=== PATIENT | female | born 1985 | race Caucasian/White ===

== ENCOUNTER 2025-04-25 14:42 | Outpatient (REF) | payer OTHER, SELFPAY ==
--- OUTSIDE RECORDS SUMMARY | 2025-04-25 10:00 | XMS_ITS | Encounter Summary ---
Author Organization [facility] Address [address] [facility] [place] [address] Care Team Providers Care Laminating Machine Operator Name Role Phone Maryellen Christianson CHAINSTITCH TUNNEL ELASTIC OPERATOR Unavailable [phone] Zhane Nathan MD Primary Care Provider [phone] Reason for Visit * Reason Comments Well Women Visit Encounter Details Date Type Department Care Team (Late st Contact Info) Description 04/25/2025 10:00 AM EDT Office Visit [facility] [address] [place] [phone] Orin Larson PA [address] [place] [address] Well woman exam with routine gynecological exam; Breast cancer screening by mammogram; Labial cyst Social History Tobacco Use Types Packs/Day Years Used Date Smoking Tobacco: Never Smokeless Tobacco: Never Alcohol Use Standard Drinks/Week Comments Not Currently 0 (1 standard drink = 0.6 oz pur e alcohol) caffeine: 2-3 cups/day tea Humiliation, Afraid, Rape, and Kick questionnair e Answer Date Recorded Within the last year, have y ou been afraid of your partner or ex-partner? No 03/18/2023 Within the last year, have y ou been humiliated or emotionally abused in other ways by your partner or ex-partner? No Within the last year, have y ou been kicked, hit, slapped, or otherwise physically hurt by your partner or ex-partner? No 03/18/2023 Within the last year, have y ou been raped or forced to have any kind of sexual activity by your partner or ex-partner? No 03/18/2023 Social Connection and Isolation Panel [NHANES] A nswer Date Recorded In a typical week, how many times do you talk on the phone with family, friends, or neighbors? Once a week 03/18/2023 How often do you get togethe r with friends or relatives? Once a week 03/18/2023 How often do you attend zoroastrianism or temple serv ices? Patient declined 03/18/2023 Do you belong to any clubs o r organizations such as zoroastrianism groups, unions, fraternal or athletic groups, or school groups? No 03/18/2023 Attends Club or Organization Meetings Not on rianna e 03/18/2023 Are you , , di vorced, , never , or living with a partner? 03/18/2023 AUDIT-C Answer Date Recorded Q1: How often do you have a drink containing alc ohol? Monthly or less 03/18/2023 Q2: How many drinks containi ng alcohol do you have on a typical day when you are drinking? 1 or 2 03/18/2023 Q3: How often do you have si x or more drinks on one occasion? Never 03/18/2023 Overall Financial Resource Strain (CARDIA) Answe r Date Recorded How hard is it for you to pa y for the very basics like food, housing, medical care, and heating? Not very hard 03/18/2023 PHQ-2 Answer Date Recorded Patient Health Questionnaire-2 Score 0 04/26/2024 [facility] - Occupational Stress Questionnaire Answer Date Recorded Do you feel stress - tense, restless, nervous, or anxious, or unable to sleep at night because your mind is troubled all the time - these days? Rather much 04/25/2024 Exercise Vital Sign Answer Date Recorde d On average, how many days pe r week do you engage in moderate to strenuous exercise (like a brisk walk)? Patient declined On average, how many minutes do you engage in exercise at this level? Patient declined 04/25/2024 Hunger Vital Sign Answer Date Recorded Within the past 12 months, y ou worried that your food would run out before you got the money to buy more. Never true 03/18/20 Within the past 12 months, t he food you bought just didn't last and you didn't have money to get more. Never true 03/18/2023 PRAPARE - Transportation Answer Date Re corded In the past 12 months, has l ack of transportation kept you from medical appointments or from getting medications? No 03/06 In the past 12 months, has l ack of transportation kept you from meetings, work, or from getting things needed for daily living? No 03/18/2023 Housing Stability Vital Sign Answer Jesus e Recorded In the last 12 months, was t here a time when you were not able to pay the mortgage or rent on time? No 03/18/2023 In the last 12 months, how many places have you lived? 1 03/18/2023 In the last 12 months, was t here a time when you did not have a steady place to sleep or slept in a usp (including now)? No 03/18/2023 Comments No Sex and Gender Information Value Date Recorded Sex Assigned at Not on file Legal Sex Female 8:11 PM EDT Gender Identity Female 11/18/2022 8:11 PM EDT Sexual Orientation Not on file documented as of this encounter Last Filed Vital Signs Vital Sign Reading Time Taken Comments Blood Pressure 118/74 04/25/2025 10:21 AM EDT Pulse - - Temperature - - Respiratory Rate - - Oxygen Saturation - - Inhaled Oxygen Concentration - - Weight 121 kg (267 lb) 04/25/2025 10:21 AM EDT Height - - Body Mass Index 37.77 04/05/2025 10:54 AM EDT documented in this encounter Progress Notes * MEME Saunders - 04/25/2025 10:00 AM EDT Reason for Appointment: Patient ID: Jackie Watson is a 39 y.o. female who presents for Well Women Visit Patient presents today for Annual Exam. MEDICATIONS Current Outpatient Medications Medication Instructions Atogepant (Qulipta) 60 MG tablet 1 tablet, Oral, Daily ergocalciferol (VITAMIN D-2) 50,000 Units galcanezumab (EMGALITY) 120 mg, Subcutaneous, Every 30 days hydroCHLOROthiazide (MICROZIDE) 12.5 mg, Oral, Every morning levothyroxine (SYNTHROID) 200 mcg, Daily before breakfast lisinopril 20 mg, Oral, Daily LORazepam (ATIVAN) 0.5 mg, Oral, Every 6 hours PRN metFORMIN (GLUCOPHAGE) 500 mg, 2 times daily with meals verapamil SR (CALAN SR) 180 mg, Oral, Daily ALLERGIES Allergies Allergen Reactions Semaglutide GI intolerance constipation Ajovy [Fremanezumab-Vfrm] Rash Penicillin G Rash Sulfa Antibiotics Rash PROBLEMS Active Ambulatory Problems Diagnosis Date Noted Abnormal weight gain 01/18/2023 Chronic maxillary sinusitis 01/18/2023 Chronic rhinitis 01/18/2023 Constipation 01/18/2023 Essential hypertension 01/18/2023 Hermes's thyroiditis 01/18/2023 Hypercholesteremia 01/18/2023 Irregular menstruation, unspecified 01/18/2023 Irritable bowel syndrome 01/18/2023 Multinodular goiter 01/18/2023 Ocular migraine 01/18/2023 Osteoarthritis of knee 01/18/2023 PCOS (polycystic ovarian syndrome) 03/11/1905 Tingling in extremities 01/18/2023 Vasomotor rhinitis 01/18/2023 Vitamin D deficiency 01/18/2023 Abscess, tongue 02/26/2023 Palpitations 03/22/2023 Resolved Ambulatory Problems Diagnosis Date Noted Psoriasis (a type of skin inflammation) 01/18/2023 Past Medical History: Diagnosis Date Anxiety Goiter, nodular IBS (irritable bowel syndrome) Kidney infection 2002 Migraines Obesity HISTORY PAST MEDICAL HISTORY SOCIAL HISTORY Past Medical History: Diagnosis Date Anxiety Constipation Essential hypertension Goiter, nodular Hermes's thyroiditis sees Dr. Jimenez IBS (irritable bowel syndrome) had cscope 2009 Kidney infection 2002 [facility] Migraines Obesity PCOS (polycystic ovarian syndrome) Vitamin D deficiency Social History Tobacco Use Smoking status: Never Smokeless tobacco: Never Substance Use Topics Alcohol use: Not Currently Comment: caffeine: 2-3 cups/day tea Drug use: Never FAMILY HISTORY Family History Problem Relation Name Age of Onset Other (lyme's disease) Mother Mom Cancer Mother Mom Peritoneal Thyroid disease Mother Mom Migraines Mother Mom Hypertension Father Dad Ulcerative colitis Father Dad Anxiety disorder Father Dad Other (pre-diabetes) Father Dad Diabetes Father Dad Thyroid disease Sister 2 sisters didn't specify who Autism Brother 2 borthers didn't specify who No Known Problems Son 2 sons Cancer Paternal Grandfather Grandpa Diabetes Paternal Grandfather Grandpa Diabetes Son Son SURGICAL HISTORY Past Surgical History: Procedure Laterality Date ADENOIDECTOMY COLONOSCOPY 2008 MYRINGOTOMY W/ TUBES as a child TONSILLECTOMY 06/03/2017 WISDOM TOOTH EXTRACTION 1999 REVIEW OF SYSTEMS Review of Systems: Review of Systems Constitutional: Negative. HENT: Negative. Eyes: Negative. Respiratory: Negative. Cardiovascular: Negative. Gastrointestinal: Negative. Genitourinary: Negative. Musculoskeletal: Negative. Skin: Negative. Neurological: Negative. All other systems reviewed and are negative. Hematological: Negative. Endocrine: Negative. Allergic/Immunologic: Negative. OBJECTIVE Objective: Physical Exam Constitutional: Appearance: Normal appearance. Genitourinary: Right Adnexa: not tender and no mass present. Left Adnexa: not tender and no mass present. No cervical discharge. Breasts: Breasts are soft. Right: Normal. Left: Normal. HENT: Head: Normocephalic. Nose: Nose normal. Mouth/Throat: Mouth: Mucous membranes are moist. Cardiovascular: Rate and Rhythm: Normal rate. Pulmonary: Effort: Pulmonary effort is normal. Abdominal: General: Bowel sounds are normal. Palpations: Abdomen is soft. Musculoskeletal: General: Normal range of motion. Cervical back: Normal range of motion. Neurological: General: No focal deficit present. Mental Status: She is alert. Skin: General: Skin is warm and dry. Psychiatric: Mood and Affect: Mood normal. Vitals and nursing note reviewed. Exam conducted with a mail room present. Vitals: Estimated body mass index is 37.77 kg/m?? as calculated from the following: Height as of 04/05/25: 5' 10.5 . Weight as of this encounter: 267 lb. BP: 118/74 No LMP recorded. ASSESSMENT & PLAN ICD-10-CM 1. Well woman exam with routine gynecological exam Z01.419 THIN PREP TIS PAP AND HR HPV DNA 2. Breast cancer screening by mammogram Z12.31 Annual Exam: Patient presents today for an annual exam. Patient states she is doing well and has no complaints. Pap was obtained without difficulty. No orders of the defined types were placed in this encounter. Patient has a history of folliculitis. States recently got back from [place] and now has 3 areas of irritation. Small follicular cyst noted in the right labia. Patient will be treated with keflex and follow up as needed Follow Up: Patient is to return in one year for annual unless needed otherwise. Documented by Savannah Molina LPN on behalf of: MEME Saunders documented in this encounter Plan of Treatment Upcoming Encounters Date Type Department Care Team (Late st Contact Info) Description 05/10/2025 10:20 AM EDT Office Visit [facility] [address] [place] [address] Zhane Nathan MD [address] [place], [place] [id number] Scheduled Orders Name Type Priority Associated Diagnoses Orde r Schedule THIN PREP TIS PAP AND HR HPV DNA Pathology and Cytology Routine Well woman exam with routine gynecological exam Ordered: 04/25/2025 documented as of this encounter Procedures Procedure Name Priority Date/Time Associated Diagnosis Comments PAP SMEAR Routine 09/16/2022 12:00 AM EST documented in this encounter Results * Pap Smear (09/16/2022 12:00 AM EST) Swab Cervical swab / Unknown us Luigi Jennifer DO LAB CYTOLOGY ORDERABLES Final Re sult EXTERNAL LAB documented in this encounter Visit Diagnoses Diagnosis Well woman exam with routine gynecological exam Routine gynecological examination Breast cancer screening by mammogram Labial cyst Other specified noninflammatory disorder of vulva and perineum documented in this encounter Care Teams Laminating Machine Operator Relationship Specialty Start Date End Date Zhane Nathan MD [address] [place], [place] [id number] PCP - General Family Medicine 02/26/23 Maryellen Christianson NP Nurse Practitioner Family Medicine 02/04/23 documented as of this encounter
--- OUTSIDE RECORDS SUMMARY | 2025-04-25 14:47 | XMS_ITS | Encounter Summary ---
Author Organization [employer] Address [id number] [address] [place] [address] Care Team Providers Care Real Estate Office Supervisor Name Role Phone Kennedy Karie Donahue APRN-MASTER SONAR TECHNICIAN Primary Care Provider [phone] Encounter Details Date Type Department Care Team (Late st Contact Info) Description 06/09/2023 Orders Only [facility] [address] [place] [address] Nakul Jimenez MD [address] [place] [address] Polycystic ovarian syndrome; Primary hypothyroidism; Pre-diabetes; Vitamin D deficiency Social History Tobacco Use Types Packs/Day Years Used Date Smoking Tobacco: Never Smokeless Tobacco: Never Alcohol Use Standard Drinks/Week Comments No 0 (1 standard drink = 0.6 oz pur e alcohol) Childcare Answer Date Recorded Childcare Unknown 02/13/2019 Employment Answer Date Recorded Employment Unknown 02/13/2019 Hunger Screening Answer Date Recorded Within the past 12 months we worried whether our food would run out before we got money to buy more. Never True 06/04/2023 Within the past 12 months th e food we bought just didn't last and we didn't have money to get more. Never True 06/04/2023 Purpose - Life Answer Date Recorded Purpose and direction in life Unknown Comments No Sex and Gender Information Value Date Recorded Sex Assigned at Not on file Legal Sex Female 12:55 PM EDT Gender Identity Not on file Sexual Orientation Not on file documented as of this encounter Plan of Treatment Upcoming Encounters Date Type Department Care Team (Late st Contact Info) Description 05/04/2025 9:15 AM EDT Appointment [facility] [place] - Neurophysiology [address] [place] [address] 07/05/2025 8:30 AM EDT Office Ultrasound [facility] Adult Endocrinology, A Department of [facility] [address] [place] [phone] Nakul Jimenez MD [address] [place] [address] documented as of this encounter Procedures Procedure Name Priority Date/Time Associated Diagnosis Comments TESTOSTERONE, FREE AND TOTAL, FEMALE OR CHILDREN Routine 05/31/2023 Polycystic ovarian syndrome VITAMIN D 25 HYDROXY Routine 05/31/2023 Vitamin D deficiency PROLACTIN Routine 05/31/2023 Polycystic ovarian syndrome INSULIN Routine 05/31/2023 Polycystic ovarian syndrome TSH Routine 05/31/2023 Primary hypothyroidism HEMOGLOBIN A1C Routine 05/31/2023 Pre-diabetes Polycystic ovarian syndrome LUTEINIZING HORMONE Routine 05/31/2023 Polycystic ovarian syndrome FOLLICLE STIMULATING HORMONE Routine 05/31/2023 Polycystic ovarian syndrome COMPREHENSIVE METABOLIC PANEL Routine 05/31/2023 Polycystic ovarian syndrome documented in this encounter Results * Insulin (05/31/2023) 05/31/2023 Nakul Jimenez MD LAB BLOOD ORDERABLES Final Result [facility] * Prolactin (05/31/2023) 05/31/2023 Nakul Jimenez MD LAB BLOOD ORDERABLES Final Result [facility] * Vitamin D 25 hydroxy (05/31/2023) Blood 05/31/2023 Result [facility] Nakul Jimenez MD LAB BLOOD ORDERABLES Final Result Performing Organization Address [facility] de Phone Number SUNQUEST * Testosterone, Free and Total, Female or Children (05/31/2023) Blood 05/31/2023 Nakul Jimenez MD LAB BLOOD ORDERABLES Final Result Performing Organization Address [facility] de Phone Number SUNQUEST * Hemoglobin A1c (05/31/2023) External Hemoglobin A1C 5.4 4.2 - 5.6 % [facility] 05/31/2023 Nakul Jimenez MD LAB BLOOD ORDERABLES Final Result Performing Organization Address [facility] de Phone Number SUNQUEST * Luteinizing hormone (05/31/2023) 05/31/2023 Result [facility] Nakul Jimenez MD LAB BLOOD ORDERABLES Final Result Performing Organization Address [facility] de Phone Number SUNQUEST * Follicle stimulating hormone (05/31/2023) 05/31/2023 Nakul Jimenez MD LAB BLOOD ORDERABLES Final Result Performing Organization Address [facility] Co de Phone Number SUNQUEST * TSH (05/31/2023) 05/31/2023 Nakul Jimenez MD LAB BLOOD ORDERABLES Final Result Performing Organization Address [facility] de Phone Number SUNQUEST * Comprehensive metabolic panel (05/31/2023) 05/31/2023 Nakul Jimenez MD LAB BLOOD ORDERABLES Final Result [facility] documented in this encounter Visit Diagnoses Diagnosis Polycystic ovarian syndrome Polycystic ovaries Primary hypothyroidism Unspecified hypothyroidism Pre-diabetes Other abnormal glucose Vitamin D deficiency documented in this encounter Additional Health Concerns Assessment Noted Time A Body Mass Index follow-up plan has been documented for the patient 09/24/2020 5:17 PM EST documented as of this encounter Care Teams Real Estate Office Supervisor Relationship Specialty Start Date End Date Karie Benavides, INSTRUCTIONAL WRITER-MASTER SONAR TECHNICIAN PCP - General Nurse Practitioner 03/29/24 documented as of this encounter
--- OUTSIDE RECORDS SUMMARY | 2025-04-25 14:47 | XMS_ITS | Encounter Summary ---
Author Organization [facility] Address [address] [place] [address] Care Team Providers Care Public Speaking Teacher Name Role Phone Maryellen Christianson ACTING TEACHER Unavailable [phone] Zhane Nathan MD Primary Care Provider [phone] Reason for Visit * Reason Comments Med Refill Encounter Details Date Type Department Care Team (Late st Contact Info) Description 06/22/2023 Refill [facility] [address] [place] [phone] Maryellen Christianson, ACTING TEACHER [address] [place] [address] Migraine with aura, not intractable, without status migrainosus Social History Tobacco Use Types Packs/Day Years [...] week 03/18/2023 How often do you attend buddhism or buddhism serv ices? Patient declined 03/18/2023 Do you belong to any clubs o r organizations such as buddhism groups, unions, [employer]) or athletic groups, or school groups? No [...] care, and heating? Not very hard 03/18/2023 [facility] - Occupational Stress Questionnaire Answer Date Recorded Do you feel stress - tense, restless, nervous, or anxious, or unable to sleep at night because your mind is troubled all the time - these days? Only a little 03/18/2023 Exercise Vital Sign Answer Date Recorde d On average, how many days pe r week do you engage in moderate to strenuous exercise (like a brisk walk)? 1 day 03/18/2023 On average, how many minutes do you engage in exercise at this level? 30 min 03/18/2023 Hunger Vital Sign Answer Date Recorded Within the past 12 months, y ou worried that your food would run out before you got the money to buy more. Never true 03/18/20 23 Within the past 12 months, t he [...] place to sleep or slept in a chcf (including now)? No 03/18/2023 Comments Unknown Sex and Gender Information Value Date Recorded Sex Assigned at Not on file Legal Sex Female 8:11 PM EDT Gender Identity Female 11/18/2022 8:11 PM EDT Sexual Orientation Not on file documented as of this encounter Miscellaneous Notes * Telephone Encounter - Zhane Nathan MD - 06/23/2023 9:21 AM EDT Approvals with refills documented in this encounter Plan of Treatment Upcoming Encounters Date Type Department Care Team (Late st Contact Info) Description 05/10/2025 10:20 AM EDT Office Visit [facility] [address] [place] [address] Zhane Nathan MD [address] [facility] [place] [address] documented as of this encounter Visit Diagnoses Diagnosis Migraine with aura, not intractable, without status migrainosus documented in this encounter Care Teams Public Speaking Teacher Relationship Specialty Start Date End Date Zhane Nathan MD [address] [facility] [place] [address] PCP - General Family Medicine 02/26/23 Maryellen Christianson NP Nurse Practitioner Family Medicine 02/04/23 documented as of this encounter
--- OUTSIDE RECORDS SUMMARY | 2025-04-25 14:47 | XMS_ITS | Encounter Summary ---
Author Organization [facility] Address [address] [facility] [place] [address] Care Team Providers Care Crib Pad Maker Name Role Phone Maryellen Christianson NP Unavailable [phone] Zhane Nathan MD Primary Care Provider [phone] Encounter Details Date Type Department Care Team (Late st Contact Info) Description 10/25/2023 Abstract [facility] [address] [place] [address] Karie Benavides NP Social History Tobacco Use Types Packs/Day Years [...] week 03/18/2023 How often do you attend bahai or methodist serv ices? Patient declined 03/18/2023 Do you belong to any clubs o r organizations such as bahai groups, unions, fraternal or athletic groups, or [...] care, and heating? Not very hard 03/18/2023 [facility] - [...] place to sleep or slept in a snf (including now)? No 03/18/2023 Comments Unknown Sex [...] 05/10/2025 10:20 AM EDT Office Visit [facility] [address] [place] [address] Zhane Nathan MD [address] [facility] [place], [place] [phone] documented as of this encounter Visit Diagnoses Not on filedocumented in this encounter Care Teams Crib Pad Maker Relationship Specialty Start Date End Date Zhane Nathan MD [address] [facility] [place], [place] [phone] PCP - General Family Medicine 02/26/23 Maryellen Christianson NP Nurse Practitioner Family Medicine 02/04/23 documented as of this encounter
--- OUTSIDE RECORDS SUMMARY | 2025-04-25 14:47 | XMS_ITS | Encounter Summary ---
Author Organization [facility] [employer] [facility] tem Address [id number] [address] [place] [address] Care Team Providers Care Assisted Living Nursing Director Name Role Phone Karie Benavides Godfrey GUZMÁN-NURSE Primary Care Provider [phone] Encounter Details Date Type Department Care Team (Late st Contact Info) Description 06/07/2017 Documentation [facility] [address] [place] [address] [place] [phone] Juliane Olguin, PA-C [address] [facility] [address] [place], [place] [id number] Social History Tobacco Use Types Packs/Day Years Used Date Smoking Tobacco: Never Smokeless Tobacco: Never Alcohol Use Standard Drinks/Week Comments No 0 (1 standard drink = 0.6 oz pur e alcohol) Comments Unknown Sex and Gender Information Value Date Recorded Sex Assigned at Not on file Legal Sex Female 12:55 PM EDT Gender Identity Not on file Sexual Orientation Not on file documented as of this encounter Plan of Treatment Upcoming Encounters Date Type Department Care Team (Late st Contact Info) Description 05/04/2025 9:15 AM EDT Appointment [facility] - Neurophysiology [address] [place] [address] 07/05/2025 8:30 AM EDT Office Ultrasound [facility] Adult Endocrinology, A Department of [facility] [address] [place] [address] Nakul Jimenez MD [address] [place] [address] documented as of this encounter Visit Diagnoses Not on filedocumented in this encounter Additional Health Concerns Infection Onset Date Last Indicated Resolved Time COVID-19 Rule-Out 07/19/2021 07/19/2021 07/19/2021 3:23 PM EST COVID-19 Rule-Out 09/08/2021 09/08/2021 09/08/2021 8:13 PM EST COVID-19 Positive 09/08/2021 09/08/2021 09/29/2021 11:12 PM EST documented as of this encounter Care Teams Assisted Living Nursing Director Relationship Specialty Start Date End Date Karie Benavides APRN-NURSE PCP - General Nurse Practitioner 03/29/24 documented as of this encounter
--- OUTSIDE RECORDS SUMMARY | 2025-04-25 14:47 | XMS_ITS | Encounter Summary ---
Author Organization [facility] Address [address] [facility] [place] [address] Care Team Providers Care Supervisor Cigar Making Machine Name Role Phone Maryellen Christianson MAINTENANCE ASSISTANT Unavailable [phone] Zhane Nathan MD Primary Care Provider [phone] Encounter Details Date Type Department Care Team (Late st Contact Info) Description 04/25/2025 Bamboo flowsheet [facility] [address] [place] [address] Orin Larson PA [address] [place], [facility] Social History Tobacco Use Types Packs/Day Years [...] week 03/18/2023 How often do you attend baptism or congregation serv ices? Patient declined 03/18/2023 Do you belong to any clubs o r organizations such as baptism groups, unions, fraternal or athletic groups, or [...] Recorded Patient Health Questionnaire-2 Score 0 04/26/2024 [facility] - Occupational Stress [...] place to sleep or slept in a detention (including now)? No 03/18/2023 Comments No Sex [...] Office Visit [facility] [address] [place] [address] Zhane Nathan MD [address] [facility] [address] [place], [place] [id number] documented as of this encounter Visit Diagnoses Not on filedocumented in this encounter Care Teams Supervisor Cigar Making Machine Relationship Specialty Start Date End Date Zhane Nathan MD [address] [facility] [place], [place] [phone] PCP - General Family Medicine 02/26/23 Maryellen Christianson NP Nurse Practitioner Family Medicine 02/04/23 documented as of this encounter
--- OUTSIDE RECORDS SUMMARY | 2025-04-25 14:47 | XMS_ITS | Clinical Summary ---
Author Organization [facility] Address [address] [facility] [place] [address] Care Team Providers Care Inside Phone Sales Name Role Phone Maryellen Christianson WRITER PRODUCER Unavailable [phone] Zhane Nathan MD Primary Care Provider [phone] Allergies Active Allergy Reactions Criticality Noted Date Comments Fremanezumab-Vfrm Rash Low 04/05/2025 Penicillin G Rash Low 01/18/2023 Semaglutide GI intolerance 11/03/2024 constipation Sulfa Antibiotics Rash Low 01/18/2023 Medications ergocalciferol (Vitamin D-2) 1.25 MG (17787 UT) capsule Take 50,000 Units by mouth. Twice monthly Active levothyroxine (Synthroid) 200 MCG tablet Take 200 mcg by mouth in the morning. Take before meals. Active metFORMIN (Glucophage) 500 MG tablet Take 500 mg by mouth in the morning and 500 mg in the evening. Take with meals. Active hydroCHLOROthiaz sedrick (Microzide) 12.5 MG capsuleIndicatio ns:Essential (primary) hypertension Take 1 capsule (12.5 mg) by mouth in the morning. 90 capsule 1 4 Active lisinopril 20 MG tabletIndication s:Essential (primary) hypertension Take 1 tablet (20 mg) by mouth Daily 90 tablet 1 5 Active verapamil SR (Calan SR) 180 MG ER tabletIndication s:Essential (primary) hypertension Take 1 tablet (180 mg) by mouth Daily 90 tablet 1 5 Active Atogepant (Qulipta) 60 MG tabletIndication s:Migraine with aura, not intractable, without status migrainosus Take 1 tablet by mouth Daily 30 tablet 2 5 Active LORazepam (Ativan) 0.5 MG tabletIndication s:Anxiety Take 1 tablet (0.5 mg) by mouth every 6 (six) hours if needed for anxiety for up to 10 days 30 tablet 5 Active galcanezumab (Emgality) 120 MG/ML auto-injectorInd ications:Migrain e aura, persistent, intractable Inject 1 Syringe (120 mg) under the skin every 30 (thirty) days 1 each 11 5 Active cephalexin (Keflex) 500 MG capsuleIndicatio ns:Labial cyst Take 1 capsule (500 mg) by mouth in the morning and 1 capsule (500 mg) before bedtime. Do all this for 20 days. 40 capsule 5 05/15/20 25 Active verapamil SR (Calan SR) 180 MG ER tabletIndication s:Essential (primary) hypertension Take 1 tablet (180 mg) by mouth Daily 90 tablet 1 4 04/05/20 25 Discontinue d(Reorder) topiramate (Topamax) 25 MG tabletIndication s:Migraine with aura, not intractable, without status migrainosus TAKE 1 TABLET TWICE A DAY FOR A WEEK THEN 2 TABLETS AT BEDTIME AND 1 TAB IN THE MORING FOR 1 WEEK THEN TAKE 2 TABS TWICE A DAY 360 tablet 4 04/05/20 25 Discontinue d(Therapy completed) Atogepant (Qulipta) 60 MG tabletIndication s:Migraine with aura, not intractable, without status migrainosus Take 1 tablet by mouth Daily 30 tablet 2 5 04/05/20 25 Discontinue d(Reorder) fremanezumab (Ajovy) 225 MG/1.5ML auto-injectorInd ications:Ocular migraine Inject 1 pen (225 mg) under the skin every 30 (thirty) days 1.68 mL 3 5 04/25/20 25 Discontinue d(Other) lactulose (Chronulac) 10 GM/15ML solutionIndicati ons:Slow transit constipation Take 15 mL (10 g) by mouth 2 (two) times a day as needed (constipati on) 2700 mL 1 04/18/20 25 Active Problems Problem Noted Date Diagnosed Date Palpitations 03/22/2023 Abscess, tongue 02/26/2023 Abnormal weight gain 01/18/2023 Chronic maxillary sinusitis 01/18/2023 Chronic rhinitis 01/18/2023 Constipation 01/18/2023 Essential hypertension 01/18/2023 Hermes's thyroiditis 01/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 Hypercholesteremia 01/18/2023 Irregular menstruation, unspecified 01/18/2023 Irritable bowel syndrome 01/18/2023 Multinodular goiter 01/18/2023 Ocular migraine 01/18/2023 Osteoarthritis of knee 01/18/2023 Tingling in extremities 01/18/2023 Vasomotor rhinitis 01/18/2023 Vitamin D deficiency 01/18/2023 PCOS (polycystic ovarian syndrome) 03/11/1905 Assessment & Plan (04/07/2025 1:09 PM EDT): Resolved Problems Problem Noted Date Diagnosed Date Resolved Date Psoriasis (a type of skin inflammation) 01/18/2023 10/20/2023 Encounters Date Type Department Care Team Description 04/25/2025 10:00 AM EDT Office Visit [facility] [address] [place] [address] Orin Larson PA Well woman exam with routine gynecological exam; Breast cancer screening by mammogram; Labial cyst 04/25/2025 Bamboo flowsheet [facility] [address] [place] [address] Orin Larson PA 04/16/2025 Telephone [facility] [address] [address] Hansel Hernández MD 04/08/2025 Abstract [facility] [address] [place] [address] Zhane Nathan MD 04/05/2025 10:40 AM EDT Office Visit [facility] [address] [place] [address] Zhane Nathan MD PCOS (polycystic ovarian syndrome) (Primary Dx); Essential (primary) hypertension ; Migraine aura, persistent, intractable ; Migraine with aura, not intractable, without status migrainosus ; Routine general medical examination at a health care facility; Arm weakness; Numbness; Arm pain, right; Arm pain, left; Anxiety 04/05/2025 Bamboo flowsheet [facility] [address] [place] [address] Zhane Nathan MD 04/05/2025 Travel 02/08/2025 Telephone [facility] [address] [facility] [place] [address] Zhane Nathan MD 02/05/2025 Telephone [facility] [address] [place] [address] Orin Larson PA 02/01/2025 3:30 PM EDT Office Visit [facility] [address] [facility] [place] [address] Orin Larson PA Labial cyst 02/01/2025 Bamboo flowsheet [facility] [address] [place] [address] Orin Larson PA from Last 3 Months Immunizations Immunization Administration Dates Next Due DTP 11/30/1988, 5,04/03/1985,1983,1983 Hep A, Adult 09/14/2013,02/24/2013 Hep B, Adolescent or Pediatric 09/14/2012,2011,03/11/2012 HiB, unspecified 08/16/1986 Influenza, High Dose Seasona l, Preservative Free 06/10/2020 Influenza, injectable, quadr ivalent, preservative free 06/28/2023,08/03/2022,06/10/2021,2019,06/09/2019 Influenza, seasonal, injectable 06/22/2017 Influenza, seasonal, injecta ble, preservative free 06/09/2024 MMR 04/03/1985 Polio, Unspecified 11/30/1988, 5,03/21/1984,1983 Td (adult), 5 Lf tetanus tox oid, preservative free, adsorbed 09/06/2012 Tdap 09/08/2012 Family History Medical History Relation Name Comments Autism Brother 2 borthers didn't specify who Anxiety disorder Father Dad Diabetes Father Dad Hypertension Father Dad Ulcerative colitis Father Dad pre-diabetes Father Dad Cancer Mother Mom Peritoneal Migraines Mother Mom Thyroid disease Mother Mom lyme's disease Mother Mom Cancer Paternal Grandfather Grandpa Diabetes Paternal Grandfather Grandpa Thyroid disease Sister 2 sisters didn't speci fy who No Known Problems Son 1 2 sons Diabetes Son 2 Son Relation Name Status Comments Brother 2 borthers Father Dad Alive Mother Mom Alive Paternal Grandfather Grandpa Sister 2 sisters Son 1 2 sons Alive Son 2 Son Social History Tobacco Use Types Packs/Day Years Used Date Smoking Tobacco: Never Smokeless Tobacco: Never Tobacco Cessation:Counseling Given: Not Answered Alcohol Use Standard Drinks/Week Comments Not Currently [...] week 03/18/2023 How often do you attend confucianist or muslim serv ices? Patient declined 03/18/2023 Do you belong to any clubs o r organizations such as confucianist groups, unions, fraternal or athletic groups, or [...] Recorded Patient Health Questionnaire-2 Score 0 04/26/2024 [facility] - Occupational Stress Questionnaire Answer Date Recorded [...] place to sleep or slept in a long-term (including now)? No 03/18/2023 Comments No Sex and Gender Information Value Date Recorded Sex Assigned at Not on file Legal Sex Female 8:11 PM EDT Gender Identity Female 11/18/2022 8:11 PM EDT Sexual Orientation Not on file Last Filed Vital Signs Vital Sign Reading Time Taken Comments Blood Pressure 118/74 04/25/2025 10:21 AM EDT Pulse 86 04/05/2025 10:54 AM EDT Temperature 36.4 C (97.5 F) 03/20/2024 1:41 PM EDT Respiratory Rate 18 04/05/2025 10:54 AM EDT Oxygen Saturation 98% 04/05/2025 10:54 AM EDT Inhaled Oxygen Concentration - - Weight 121 kg (267 lb) 04/25/2025 10:21 AM EDT Height 179.1 cm (5' 10.5 ) 04/05/2025 10:54 AM E DT Body Mass Index 37.77 04/05/2025 10:54 AM EDT Plan of Treatment Upcoming Encounters Date Type Department Care Team (Late st Contact Info) Description 05/10/2025 10:20 AM EDT [facility] [address] [facility] [place] [phone] Zhane Nathan MD [address] [facility] [place] [address] Health Maintenance Due Date Last Done Comments HPV/Cotest 2013 Mammogram 2023 09/22/2022, 09/16/2022 Influenza Vaccine (#1) 2025 , 06/28/2023, 08/03/2022, Additional history exists Cervical Cancer Screening 09/16/2025 Pap Smear 09/16/2025 09/16/2022 Procedures Procedure Name Priority Date/Time Associated Diagnosis Comments BI MAMMOGRAM DIAGNOSTIC BILATERAL Routine 09/16/2022 12:00 PM EST Essential (primary) hypertension Polycystic ovarian syndrome Encounter for gynecological examination (general) (routine) without abnormal findings Unspecified lump in the right breast, upper outer quadrant PAP SMEAR Routine 09/16/2022 12:00 AM EST from Last 3 Months or Most Recently Relevant to Health Maintenance Results * Bilateral diagnostic mammogram (09/16/2022 12:00 PM EST) Anatomical Region Laterality Modality Breast Bilateral Mammography Narrative 09/16/2022 12:00 PM EST PERFORMED AT [facility] LOCATION:[id number] Procedure Note CONVERSION, GENERIC - 03/12/2023 PERFORMED AT [facility] LOCATION:[id number] us Luigi Jennifer DO IMG BI PROCEDURES Final Result * Pap Smear (09/16/2022 12:00 AM EST) Swab Cervical swab / Unknown us Luigi Jennifer DO LAB CYTOLOGY ORDERABLES Final Re sult EXTERNAL LAB from Last 3 Months or Most Recently Relevant to Health [place] [address] [facility] Address: [address] [address] Care Teams Inside Phone Sales Relationship Specialty Start Date End Date Zhane Nathan MD [address] [place] [phone] PCP - General Family Medicine 02/26/23 Maryellen Christianson NP Nurse Practitioner Family Medicine 02/04/23
--- OUTSIDE RECORDS SUMMARY | 2025-04-25 14:47 | XMS_ITS | Clinical Summary ---
Author Organization [facility] Address [id number] [address] [place] [address] Care Team Providers Care Clerk Cashier Name Role Phone Karie Benavides APRN-MUSEUM SERVICE SCHEDULER Primary Care Provider [phone] Allergies Active Allergy Reactions Criticality Noted Date Comments Penicillin Other (See Comments) 09/17/2021 Penicillin G Rash Low 01/18/2023 Penicillins Rash Low 02/10/2017 Sulfa (Sulfonamide Antibiotics) Rash,Other (See Comments) Low 02/10/2017 Semaglutide (Weight Loss) GI Disturbance 11/03/2024 constipation Medications lisinopril (PRINIVIL,ZESTRIL) 20 mg tablet Take 1 tablet (20 mg total) by mouth once daily for 180 days. 90 tablet 1 7 Active verapamil SR (CALAN-SR) 180 mg CR tablet Take 1 tablet (180 mg total) by mouth daily. 90 tablet 3 9 Active hydroCHLOROthiazid e (MICROZIDE) 12.5 mg capsule Take 1 capsule (12.5 mg total) by mouth daily. 0 Active topiramate (TOPAMAX) 25 mg tablet 1 tablet Orally Once a day at bedtime for 30 day(s) Active metFORMIN XR (GLUCOPHAGE XR) 500 mg 24 hr tabletIndications: Polycystic ovarian syndrome,Pre-diabe hernando Take 1 tablet (500 mg total) by mouth in the morning and 1 tablet (500 mg total) before bedtime. 180 tablet 3 4 Active ergocalciferol (DRISDOL) 1,250 mcg (50,000 unit) capsule TAKE 1 CAPSULE BY MOUTH 2 TIMES MONTHY 6 capsule 3 4 Active AJOVY AUTOINJECTOR 225 mg/1.5 mL INJECT 1 PEN (225 MG) UNDER THE SKIN EVERY 30 (THIRTY) DAYS Active SYNTHROID 200 mcg tabletIndications: Primary hypothyroidism Take 1 tablet (200 mcg total) by mouth in the morning. One tablet Daily, skip every Wednesday, Synthroid GOOD. 78 tablet 3 5 Active Active Problems Patient Care Coordination No te Formatting of this note migh t be different from the original. ECHO 70% 06/23 HOLTER 05/24 Problem Noted Date Diagnosed Date Other chest pain 06/16/2018 S/P tonsillectomy 06/16/2017 Nasal congestion 06/16/2017 Hypertension Palpitations Family History Medical History Relation Name Comments Anxiety disorder Father Diabetes Father Hypertension Father Thyroid disease Father Other Mother SHINGLES Ovarian cancer Mother Thyroid disease Mother Breast cancer Neg Hx Relation Name Status Comments Father Alive Mother Alive Social History Tobacco Use Types Packs/Day Years Used Date Smoking Tobacco: Never Smokeless Tobacco: Never Tobacco Cessation:Counseling Given: Not Answered Alcohol Use Standard Drinks/Week Comments Not Currently 0 (1 standard drink = 0.6 oz pur e alcohol) occ Childcare Answer Date Recorded Childcare Unknown 02/13/2019 Employment Answer Date Recorded Employment Unknown 02/13/2019 Hunger Screening Answer Date Recorded Within the past 12 months we worried whether our food would run out before we got money to buy more. Never True 11/03/2024 Within the past 12 months th e food we bought just didn't last and we didn't have money to get more. Never True 11/03/2024 Purpose - Life Answer Date Recorded Purpose and direction in life Unknown Comments No Sex and Gender Information Value Date Recorded Sex Assigned at Not on file Legal Sex Female 12:55 PM EDT Gender Identity Not on file Sexual Orientation Not on file Last Filed Vital Signs Vital Sign Reading Time Taken Comments Blood Pressure 115/73 11/08/2024 8:23 AM EST Pulse 98 11/03/2024 2:46 PM EST Temperature 36 C (96.8 F) 06/03/2017 11:00 AM EDT Respiratory Rate 16 06/04/2023 9:18 AM EDT Oxygen Saturation 100% 06/03/2017 1:00 PM EDT Inhaled Oxygen Concentration - - Weight 116.1 kg (256 lb) 11/08/2024 8:23 AM EST Height 177.8 cm (5' 10 ) 11/08/2024 8:23 AM EST Body Mass Index 36.73 11/08/2024 8:23 AM EST Plan of Treatment Upcoming Encounters Date Type Department Care Team (Late st Contact Info) Description 05/04/2025 9:15 AM EDT Appointment [facility] - Neurophysiology [address] [place] [address] 07/05/2025 8:30 AM EDT Office Ultrasound [facility] Adult Endocrinology, A Department of [facility] [address] [place] [phone] Nakul Jimenez MD [address] [place] [address] Health Maintenance Due Date Last Done Comments Depression Screening 1995 Adult BMI Follow Up Plan 2001 Pap Smear 12/01/2019 11/30/2016, 11/30/2016 DTaP,Tdap and Td Vaccines (8 - Td or Tdap) 09/08/2022 09/08/2012, 09/06/2012, 11/30/1988, Additional history exists Influenza Vaccine 05/07/2025 06/09/2024, , 08/03/2022, Additional history exists Tobacco Screening 11/03/2025 11/03/2024 Adult BMI Screening 11/08/2025 11/08/2024 Medical Devices Not on file Procedures Procedure Name Priority Date/Time Associated Diagnosis Comments HIGH RISK HPV W/YAQUELIN Routine 11/30/2016 10:55 AM EDT from Last 3 Months or Most Recently Relevant to Health Maintenance Results * High risk HPV w/yaquelin (11/30/2016 10:55 AM EDT) Hpv specimen type ThinPrep 12/08/2016 10:59 AM EDT [facility] Hpv 16 Negative Negative 12/09/2016 1:51 PM EDT [facility] Hpv 18 Negative Negative 12/09/2016 1:51 PM EDT [facility] Other high risk hpv Negative Negative 12/09/2016 1:51 PM EDT [facility] Comment: HPV types 31,33,35,39,45,52,56,58,59,66 and 68 DNA were undetectable. 11/30/2016 10:5 5 AM EDT 12/01/2016 10:55 AM EDT us Conversion Provider LAB BLOOD ORDERABLES Kia l Result [facility] [address] [place] [address], [place] [facility] from Last 3 Months or Most Recently Relevant to Health Maintenance Insurance [employer] Care Teams Clerk Cashier Relationship Specialty Start Date End Date Karie Benavides, MARKET SPECIALIST-MUSEUM SERVICE SCHEDULER PCP - General Nurse Practitioner 03/29/24
--- OUTSIDE RECORDS SUMMARY | 2025-04-25 14:47 | XMS_ITS | Encounter Summary ---
Author Organization [facility] Address [address] [facility] [place] [address] Care Team Providers Care Saddle Maker Name Role Phone Maryellen Christianson CASE MGR Unavailable [phone] Zhane Nathan MD Primary Care Provider [phone] Encounter Details Date Type Department Care Team (Late st Contact Info) Description 04/16/2025 Telephone [facility] [address] [place] [phone] Hansel Hernández MD [address] [place], [place] [phone] Social History Tobacco Use Types Packs/Day Years [...] week 03/18/2023 How often do you attend advent or latter-day serv ices? Patient declined 03/18/2023 Do you belong to any clubs o r organizations such as advent groups, unions, fraternal or athletic groups, or [...] Recorded Patient Health Questionnaire-2 Score 0 04/26/2024 [facility] - [...] place to sleep or slept in a senior living (including now)? No 03/18/2023 Comments No Sex and Gender Information Value Date Recorded Sex Assigned at Not on file Legal Sex Female 8:11 PM EDT Gender Identity Female 11/18/2022 8:11 PM EDT Sexual Orientation Not on file documented as of this encounter Miscellaneous Notes * Telephone Encounter - David Abreu - 04/16/2025 3:53 PM EDT LVM to in regard to BUE referral from Dr Nathan--620.36 applied to deductible 41.91 applied to co-pay--balance pf 662.27--will need to bring 450.00 to visit. documented in this encounter Plan of Treatment Upcoming Encounters Date Type Department Care Team (Late st Contact Info) Description 05/10/2025 10:20 AM EDT Office Visit [facility] [address] [place] [address] Zhane Nathan MD [address] [place] [address] documented as of this encounter Visit Diagnoses Not on filedocumented in this encounter Care Teams Saddle Maker Relationship Specialty Start Date End Date Zhane Nathan MD [address] [facility] [place] [address] PCP - General Family Medicine 02/26/23 Maryellen Christianson NP Nurse Practitioner Family Medicine 02/04/23 documented as of this encounter
--- OUTSIDE RECORDS SUMMARY | 2025-04-25 14:47 | XMS_ITS | Encounter Summary ---
Author Organization [facility] Address [address] [facility] [place] [address] Care Team Providers Care Assistant Manager Pt Name Role Phone Unallocated, [facility] Provider Primary Care Provi manuela Maryellen Christianson HORSE RACE TIMER Unavailable [phone] Zhane Nathan MD Primary Care Provider [phone] Encounter Details Date Type Department Care Team (Late Contact Info) Description 02/02/2023 Abstract [facility] [address] [facility] [address] [place] [address] Rich Cantor DO [address] [facility] [address] [place] [address] Social History Tobacco Use Types Packs/Day Years Used Date Smoking Tobacco: Never Smokeless Tobacco: Never Tobacco Cessation:Counseling Given: Not Answered Alcohol Use Standard Drinks/Week Comments Not Currently 0 (1 standard drink = 0.6 oz pur e alcohol) caffeine: 2-3 cups/day tea Comments Unknown Sex and Gender Information Value Date Recorded Sex Assigned at Not on file Legal Sex Female 8:11 PM EDT Gender Identity Female 11/18/2022 8:11 PM EDT Sexual Orientation Not on file documented as of this encounter Plan of Treatment Upcoming Encounters Date Type Department Care Team (Late Contact Info) Description 05/10/2025 10:20 AM EDT Office Visit [facility] [address] [place] [phone] Zhane Nathan MD [address] [place] [address] documented as of this encounter Visit Diagnoses Not on filedocumented in this encounter Care Teams Assistant Manager Pt Relationship Specialty Start Date End Date Unallocated, Noms Provider, [address] [place], [place] [id number] PCP - General 02/04/23 02/25/23 Zhane Nathan MD [address] [place], [place] [phone] PCP - General Family Medicine 02/26/23 Maryellen Christianson NP [address] [place] [address] Nurse Practitioner Family Medicine 02/04/23 documented as of this encounter
--- OUTSIDE RECORDS SUMMARY | 2025-04-25 14:47 | XMS_ITS | Clinical Summary ---
Author Organization [facility] Address [address] [facility] [place] [address] Care Team Providers Care Urgent Care Technician Name Role Phone Cheri Singleton MD Primary Care Provider [phone] Allergies Active Allergy Reactions Criticality Noted Date Comments Penicillins Rash Low 10/13/2017 Sulfa Antibiotics Rash Low 10/13/2017 Medications vitamin D (ERGOCALCIFEROL ) 67407 units CAPS capsule TAKE ONE CAPSULE BY MOUTH TWICE PER MONTH DIRECTED 3 09/26/2017 Active lisinopril (PRINIVIL;ZESTR IL) 20 MG tablet TAKE 1 TABLET BY MOUTH EVERY DAY 1 09/26/2017 Active metFORMIN (GLUCOPHAGE) 500 MG tablet TAKE 1 TABLET BY MOUTH TWICE A DAY WITH MEALS 3 08/09/2017 Active levothyroxine (SYNTHROID) 137 MCG tablet Take 137 mcg by mouth Daily Active Active Problems No known active problems Immunizations Immunization Administration Dates Next Due Influenza Virus Vaccine 06/22/2017 Social History Tobacco Use Types Packs/Day Years Used Date Smoking Tobacco: Never Smokeless Tobacco: Never Alcohol Use Standard Drinks/Week Comments No 0 (1 standard drink = 0.6 oz pur e alcohol) Comments No Sex and Gender Information Value Date Recorded Sex Assigned at Not on file Legal Sex Female 7:12 PM EST Gender Identity Not on file Sexual Orientation Not on file Last Filed Vital Signs Vital Sign Reading Time Taken Comments Blood Pressure 118/82 10/13/2017 10:37 AM EST Pulse - - Temperature - - Respiratory Rate - - Oxygen Saturation - - Inhaled Oxygen Concentration - - Weight 101.2 kg (223 lb) 10/13/2017 10:37 AM EST Height 177.8 cm (5' 10 ) 10/13/2017 10:37 AM EST Body Mass Index 32 10/13/2017 10:37 AM EST Plan of Treatment Not on file Insurance [employer] Care Teams Urgent Care Technician Relationship Specialty Start Date End Date Cheri Singleton MD [address] [place] [address] PCP - General Family Medicine 10/13/17
--- OUTSIDE RECORDS SUMMARY | 2025-04-25 14:47 | XMS_ITS | Encounter Summary ---
Author Organization [facility] Address [address] [facility] [place] [address] Care Team Providers Care Hematology Supervisor Name Role Phone Maryellen Christianson DISTRIBUTION TRANSFORMER ASSEMBLER Unavailable [phone] Zhane Nathan MD Primary Care Provider [phone] Encounter Details Date Type Department Care Team (Late st Contact Info) Description 10/20/2024 Abstract [facility] [address] [facility] [place] [address] Zhane Nathan MD [address] [facility] [place], [place] [id number] Social History Tobacco Use Types Packs/Day Years [...] week 03/18/2023 How often do you attend pentecostalism or religion serv ices? Patient declined 03/18/2023 Do you belong to any clubs o r organizations such as pentecostalism groups, unions, fraternal or athletic groups, or [...] Recorded Patient Health Questionnaire-2 Score 0 04/26/2024 [facility]ational Stress Questionnaire Answer [...] place to sleep or slept in a prison (including now)? No 03/18/2023 Comments Unknown Sex [...] Office Visit [facility] [address] [place] [address] Zhane Nathan MD [address] [facility] [place], [place] [id number] documented as of this encounter Visit Diagnoses Not on filedocumented in this encounter Care Teams Hematology Supervisor Relationship Specialty Start Date End Date Zhane Nathan MD [address] [facility] [place], [place] [id number] PCP - General Family Medicine 02/26/23 Maryellen Christianson NP Nurse Practitioner Family Medicine 02/04/23 documented as of this encounter
--- OUTSIDE RECORDS SUMMARY | 2025-04-25 14:47 | XMS_ITS | Encounter Summary ---
Author Organization [facility] Address [address] [facility] [place] [address] Care Team Providers Care Ad Operations Intern Name Role Phone Maryellen Christianson TAXI PROPRIETOR Unavailable [phone] Zhane Nathan MD Primary Care Provider [phone] Encounter Details Date Type Department Care Team (Late st Contact Info) Description 04/08/2025 [facility] [address] [facility] [place] [address] Zhane Nathan MD [address] [facility] [place], [place] [id number] Social History Tobacco Use Types Packs/Day Years [...] week 03/18/2023 How often do you attend protestant or spiritism serv ices? Patient declined 03/18/2023 Do you belong to any clubs o r organizations such as protestant groups, unions, fraternal or athletic groups, or [...] Recorded Patient Health Questionnaire-2 Score 0 04/26/2024 [facility] Occupational Stress Questionnaire [...] place to sleep or slept in a m[facility]p (including now)? No 03/18/2023 Comments No Sex [...] Office Visit [facility] [address] [place] [address] Zhane Nathan MD [address] [facility] [place], [place] [id number] documented as of this encounter Visit Diagnoses Not on filedocumented in this encounter Care Teams Ad Operations Intern Relationship Specialty Start Date End Date Zhane Nathan MD [address] [facility] [place], [place] [id number] PCP - General Family Medicine 02/26/23 Maryellen Christianson NP Nurse Practitioner Family Medicine 02/04/23 documented as of this encounter
--- OUTSIDE RECORDS SUMMARY | 2025-04-25 14:47 | XMS_ITS | Encounter Summary ---
Author Organization [employer] Address [id number] [address] [place] [address] Care Team Providers Care Shell Maker Lockstitch Name Role Phone Karie Benavides Godfrey GUZMÁN-BALLISTICS EXPERT Primary Care Provider [phone] Encounter Details Date Type Department Care Team (Late st Contact Info) Description 04/03/2024 Orders Only [facility]ocr[facility]ology [address] [place] [address] Nakul Jimenez MD [address] [place] [address] Social History Tobacco Use Types Packs/Day Years [...] got money to buy more. Never True 03/29/2024 Within the past 12 months th e food we bought just didn't last and we didn't have money to get more. Never True 03/29/2024 Purpose - Life Answer Date Recorded Purpose [...] Info) Description 05/04/2025 9:15 AM EDT Appointment [facility] [place] - Neurophysiology [address] [place] [address] 07/05/2025 8:30 AM EDT Office Ultrasound [facility] Adult Endocrinology, A Department of [facility] [address] [place] [address] Nakul Jimenez MD [address] [place] [address] documented as of this encounter Procedures Procedure Name Priority Date/Time Associated Diagnosis Comments MULTIPLE LABS Routine 03/27/2024 documented in this encounter Results * Multiple labs (03/27/2024) 03/27/2024 us Scanning Provider External [facility] [facility] Final Result documented in this encounter Visit Diagnoses Not on filedocumented in this encounter Additional Health Concerns Assessment Noted Time A Body Mass Index follow-up plan has been documented for the patient 09/24/2020 5:17 PM EST documented as of this encounter Care Teams Shell Maker Lockstitch Relationship Specialty Start Date End Date Karie Benavides APRN-BALLISTICS EXPERT PCP - General Nurse Practitioner 03/29/24 documented as of this encounter
--- OUTSIDE RECORDS SUMMARY | 2025-04-25 14:47 | XMS_ITS | Encounter Summary ---
Author Organization [facility] tem Address [id number] [address] [place] [address] Care Team Providers Care Human Resources Representative Name Role Phone Karie Benavides APRN-LEAD MOBILE DEVELOPER Primary Care Provider [phone] Encounter Details Date Type Department Care Team (Late st Contact Info) Description 11/27/2024 Orders Only [facility] Adult Endocrinology, A Department of [facility] [address] [id number] External, Scanning Provider Social History Tobacco Use Types Packs/Day Years [...] on file documented as of this encounter Progress Notes * Nakul Jimenez MD - 11/27/2024 3:21 PM EDT Thyroid, vitamin-D and A1c at goal. documented in this encounter Plan of Treatment Upcoming Encounters Date Type Department Care Team (Late st Contact Info) Description 05/04/2025 9:15 AM EDT Appointment [facility] - Neurophysiology [address] [place] [address] 07/05/2025 8:30 AM EDT Office Ultrasound [facility] Adult Endocrinology, A Department of [facility] [address] [place] [address] Nakul Jimenez MD [address] [place] [address] documented as of this encounter Procedures Procedure Name Priority Date/Time Associated Diagnosis Comments MULTIPLE LABS Routine 11/02/2024 3:21 PM EST documented in this encounter Results * Multiple labs (11/02/2024 3:21 PM EST) us Scanning Provider External [place] [facility] Edite d Result - Final documented in this encounter Visit Diagnoses Not on filedocumented in this encounter Additional Health Concerns Assessment Noted Time A Body Mass Index follow-up plan has been documented for the patient 09/24/2020 5:17 PM EST documented as of this encounter Care Teams Human Resources Representative Relationship Specialty Start Date End Date Karie Benavides APRN-LEAD MOBILE DEVELOPER PCP - General Nurse Practitioner 03/29/24 documented as of this encounter
--- OUTSIDE RECORDS SUMMARY | 2025-04-25 14:47 | XMS_ITS | Encounter Summary ---
Author Organization [facility] Address [address] [facility] [place] [address] Care Team Providers Care Animal Laboratory Helper Name Role Phone Maryellen Christianson HYDROCRANE OPERATOR Unavailable [phone] Zhane Nathan MD Primary Care Provider [phone] Reason for Visit * Reason Comments Med Refill Encounter Details Date Type Department Care Team (Late st Contact Info) Description 06/15/2023 Refill [facility] [address] [facility] [place] [address] Zhane Nathan MD [address] [facility] [place] [address] Essential (primary) hypertension Social History Tobacco Use Types Packs/Day Years [...] week 03/18/2023 How often do you attend uatsdin or mandaeism serv ices? Patient declined 03/18/2023 Do you belong to any clubs o r organizations such as uatsdin groups, unions, [employer] or athletic groups, or school groups? No 03/18/2023 Attends Club or Organization Meetings Not on rainna e 03/18/2023 Are you , , di [...] care, and heating? Not very hard 03/18/2023 [facility] - Occupational [...] place to sleep or slept in a halfway (including now)? No 03/18/2023 Comments Unknown Sex and Gender Information Value Date Recorded Sex Assigned at Not on file Legal Sex Female 8:11 PM EDT Gender Identity Female 11/18/2022 8:11 PM EDT Sexual Orientation Not on file documented as of this encounter Miscellaneous Notes * Telephone Encounter - Zhane Nathan MD - 06/15/2023 2:44 PM EDT Approvals with refills documented in this encounter Plan of Treatment Upcoming Encounters Date Type Department Care Team (Late st Contact Info) Description 05/10/2025 10:20 AM EDT Office Visit [facility] [address] [place] [address] Zhane Nathan MD [address] [facility] [place], [place] [id number] documented as of this encounter Visit Diagnoses Diagnosis Essential (primary) hypertension Unspecified essential hypertension documented in this encounter Care Teams Animal Laboratory Helper Relationship Specialty Start Date End Date Zhane Nathan MD [address] [place], [place] [id number] PCP - General Family Medicine 02/26/23 NavMaryellen marquez NP Nurse Practitioner Family Medicine 02/04/23 documented as of this encounter
--- OUTSIDE RECORDS SUMMARY | 2025-04-25 14:47 | XMS_ITS | Encounter Summary ---
Author Organization [employer] Address [facility]-[id number] [address] [place] [address] Care Team Providers Care Degreasing Wheel Operator Name Role Phone Kennedy Karie Godfrey GUZMÁN-DRYWALL STRIPPER HELPER Primary Care Provider [phone] Encounter Details Date Type Department Care Team (Late st Contact Info) Description 03/30/2024 [facility] [address] [facility] [address] [place] [address] Vidhya Dao LPN Social History Tobacco Use Types Packs/Day Years [...] encounter Miscellaneous Notes * Telephone Encounter - Vidhya Dao LPN - 03/30/2024 1:25 PM EDT Insurance wants her to enroll in a weight loss program * Telephone Encounter - Nakul Jimenez MD - 03/30/2024 1:25 PM EDT Okay to refer her to [facility] weight loss program. documented in this encounter Plan of Treatment Upcoming Encounters Date Type Department Care Team (Late st Contact Info) Description 05/04/2025 9:15 AM EDT Appointment [facility] - Neurophysiology [address] [place] [address] 07/05/2025 8:30 AM EDT Office Ultrasound [facility] Adult Endocrinology, A Department of [facility] [address] [place] [address] Nakul Jimenez MD [address] [place] [address] documented as of this encounter Visit Diagnoses Not on filedocumented in this encounter Additional Health Concerns Assessment Noted Time A Body Mass Index follow-up plan has been documented for the patient 09/24/2020 5:17 PM EST documented as of this encounter Care Teams Degreasing Wheel Operator Relationship Specialty Start Date End Date Karie Benavides APRN-DRYWALL STRIPPER HELPER PCP - General Nurse Practitioner 03/29/24 documented as of this encounter
--- OUTSIDE RECORDS SUMMARY | 2025-04-25 14:47 | XMS_ITS | Encounter Summary ---
Author Organization [facility] Address [address] [email or web address] [place] [address] Care Team Providers Care Painter Shipyard Name Role Phone Maryellen Christianson PRAWN TRAWLER HAND Unavailable [phone] Zhane Nathan MD Primary Care Provider [phone] Reason for Visit * Reason Comments Med Refill Encounter Details Date Type Department Care Team (Late st Contact Info) Description 03/14/2023 Refill [facility] [address] [facility] [place] [address] Zhane Nathan MD [address] [facility] [place] [address] Essential (primary) hypertension Social History [...] week 03/18/2023 How often do you attend sabianist or restorationist serv ices? Patient declined 03/18/2023 Do you belong to any clubs o r organizations such as sabianist groups, unions, fraeParachute or athletic groups, or school groups? No [...] care, and heating? Not very hard 03/18/2023 [facility] - [...] a usp (including now)? No 03/18/2023 Comments Unknown Sex and Gender Information Value Date Recorded Sex Assigned at Not on file Legal Sex Female 8:11 PM EDT Gender Identity Female 11/18/2022 8:11 PM EDT Sexual Orientation Not on file COVID-19 Exposure Response Date Recorded In the last 10 days, have yo u been in contact with someone who was confirmed or suspected to have Coronavirus/COVID-19? No / Unsure 02/26/2023 12:54 PM EDT documented as of this encounter Miscellaneous Notes * Telephone Encounter - Zhane Nathan MD - 03/15/2023 8:08 AM EDT Approvals with refills documented in this encounter Plan of Treatment Upcoming Encounters Date Type Department Care Team (Late st Contact Info) Description 05/10/2025 10:20 AM EDT Office Visit [facility] [address] [place] [address] Zhane Nathan MD [address] [place] [address] documented as of this encounter Visit Diagnoses Diagnosis Essential (primary) hypertension Unspecified essential hypertension documented in this encounter Care Teams Painter Shipyard Relationship Specialty Start Date End Date Zhane Nathan MD [address] [place] [address] PCP - General Family Medicine 02/26/23 Maryellen Christianson NP Nurse Practitioner Family Medicine 02/04/23 documented as of this encounter
--- OUTSIDE RECORDS SUMMARY | 2025-04-25 14:47 | XMS_ITS | Encounter Summary ---
Author Organization [facility] [employer] Address [facility]-[id number] [address] [place] [address] Care Team Providers Care Cpc Coder Name Role Phone Kennedy Karie Donahue APRN-IT PROJECT LEAD Primary Care Provider [phone] Reason for Visit * Reason Onset Date Comments Med Refill 06/03/2017 Encounter Details Date Type Department Care Team (Late st Contact Info) Description 06/03/2017 Refill [facility] Physicians Ear, Nose and Throat [address] [place] [address] Juliane Olguin, PA-C [address] [facility] [address] [place], [place] [id number] Social History Tobacco Use Types Packs/Day Years [...] Info) Description 05/04/2025 9:15 AM EDT Appointment [facility] - Neurophysiology [address] [place] [address] 07/05/2025 8:30 AM EDT Office Ultrasound [facility] Adult Endocrinology, A Department of [facility] [address] [place] [address] Nakul Jimenez MD [address] [facility] [place] [address] documented as of this encounter Visit Diagnoses Not on filedocumented in this encounter Additional Health Concerns Infection Onset Date Last Indicated Resolved Time COVID-19 Rule-Out 07/19/2021 07/19/2021 07/19/2021 3:23 PM EST COVID-19 Rule-Out 09/08/2021 09/08/2021 09/08/2021 8:13 PM EST COVID-19 Positive 09/08/2021 09/08/2021 09/29/2021 11:12 PM EST documented as of this encounter Care Teams Cpc Coder Relationship Specialty Start Date End Date Karie Benavides APRN-IT PROJECT LEAD PCP - General Nurse Practitioner 03/29/24 documented as of this encounter
[2025-04-27 15:08] LABS: Age Gdln ACOG Testing Note (.); IGP, Aptima HPV, rfx 16/18,45 Note (.)
== END 2025-04-25 14:43 | disposition home or self-care (01) ==
LOC: LAB 14:42
PROVIDERS: Visit Provider Physician Assistant
DX: Z01.419 Encounter for gynecological examination (general) (routine) without abnormal findings (principal)
CPT/HCPCS: 87624; 88175